=== PATIENT | male | born 1965 | race African-American/Black ===

== ENCOUNTER 2016-06-03 23:38 | Emergency (ER) | payer OTHER, SELFPAY ==
[2016-06-04] MEDS ORDERED: Sodium Chloride 0.9% 100 ML ONE (00:01)
[2016-06-04 00:31] LABS: #Basophils 0.1 thou/uL (0.0-0.2); #Eosinphils 0.4 thou/uL (0.0-0.7); #Monocytes 0.7 thou/uL (0.11-0.59); #Neutrophils 4.4 thou/uL (1.40-6.50); %Basophils 1.2 % (0.0-1.0); %Eosinophils 3.9 % (0.0-10.0); %Lymphocytes 41.4 % (21.0-51.0); %Monocytes 7.4 % (0.0-10.0); Hematocrit 46.5 % (42.0-52.0); Mean Platelet Volume 8.2 fL (7.4-10.4); Red Blood Cell (RBC) Count 5.81 mill/uL (4.70-6.10); White Blood Cell (WBC) Count 9.6 thou/uL (4.8-10.8)
[2016-06-04 00:40] LABS: Troponin I 0.014 ng/mL (< 0.028)
[2016-06-04 00:42] LABS: ALT (SGPT) 27 U/L (0-55); AST (SGOT) 21 U/L (5-34); Alkaline Phosphatase 101 U/L (40-150); Anion Gap 16 mmol/L (10-20); BUN (Urea Nitrogen) 14 mg/dL (8.4-25.7); Bilirubin, Total 0.3 mg/dL (0.2-1.2); Calc. Creatinine Clearance 0 mL/min (70-130); Calcium 9.5 mg/dL (7.8-10.44); Carbon Dioxide 22 mmol/L (22-29); Chloride 106 mmol/L (98-107); Estimated GFR-MDRD 85; Globulin 3.1 g/dL (2.4-3.5); Protein, Total 7.3 g/dL (6.0-8.3)
== END 2016-06-04 02:53 | disposition short-term general hospital (02) ==
LOC: NAV ERS 23:38
DX: I48.91 Unspecified atrial fibrillation (principal); I10 Essential (primary) hypertension; Z87.891 Personal history of nicotine dependence; Z79.82 Long term (current) use of aspirin; Z79.899 Other long term (current) drug therapy
CPT/HCPCS: 80053; 82550; 82553; 83880; 84484; 85025; 93005; 96365; 96366; 96376

== ENCOUNTER 2016-06-19 09:38 | Emergency (ER) | payer SELFPAY | END 2016-06-19 10:07 | disposition home or self-care (01) | LOC: NAV ERS 09:38 | DX: A09 Infectious gastroenteritis and colitis, unspecified (principal); I48.91 Unspecified atrial fibrillation; Z87.891 Personal history of nicotine dependence | CPT/HCPCS: 99283 ==

== ENCOUNTER 2016-11-16 10:08 | Emergency (ER) | payer OTHER, SELFPAY ==
[2016-11-16] MEDS ORDERED: predniSONE 20 MG TAB ONE (10:30)
== END 2016-11-16 10:42 | disposition home or self-care (01) ==
LOC: NAV ERS 10:08
DX: L23.7 Allergic contact dermatitis due to plants, except food (principal); I48.91 Unspecified atrial fibrillation; I10 Essential (primary) hypertension; Z87.891 Personal history of nicotine dependence; Z79.899 Other long term (current) drug therapy
CPT/HCPCS: 99282; J7506

== ENCOUNTER 2016-11-20 21:48 | Emergency (ER) | payer SELFPAY ==
[2016-11-20 22:15] LABS: #Basophils 0.1 thou/uL (0.0-0.2); #Eosinphils 0.3 thou/uL (0.0-0.7); #Lymphocytes 3.6 thou/uL (1.20-3.40); #Monocytes 0.5 thou/uL (0.11-0.59); #Neutrophils 4.9 thou/uL (1.40-6.50); %Basophils 1.2 % (0.0-1.0); %Eosinophils 2.9 % (0.0-10.0); %Lymphocytes 38.4 % (21.0-51.0); %Monocytes 5.6 % (0.0-10.0); %Neutrophils 51.9 % (42.0-75.0); Hemoglobin 14.1 g/dL (14.0-18.0); Mean Corpuscular HGB CONC 31.8 g/dL (32.0-36.0); Mean Corpuscular Hemoglobin 25.4 pg (27.0-31.0); Mean Corpuscular Volume 79.8 fl (80.0-94.0); Platelet Count 259 thou/uL (130-400); RBC Distribution Width 12.7 % (11.5-14.5); Red Blood Cell (RBC) Count 5.55 mill/uL (4.70-6.10); White Blood Cell (WBC) Count 9.4 thou/uL (4.8-10.8)
[2016-11-20 22:28] LABS: Bilirubin Negative (Negative); Blood, Urine Trace (Negative); Clarity Clear (Clear); Glucose, Urine (Dipstick) Negative (Negative); Leukocyte Negative (Negative); Nitrite Negative (Negative); Protein, Urine (Dipstick) Negative (Neg-Trace); Specific Gravity, Urine 1.015 (1.005-1.030); Urobilinogen 0.2 mg/dL (0.2-1.0)
[2016-11-20] MEDS ORDERED: Metoprolol Tartrate 5 MG/5 ML VIAL ONE (22:35)
[2016-11-20 22:36] LABS: ALT (SGPT) 42 U/L (8-55); AST (SGOT) 34 U/L (5-34); Albumin 4.3 g/dL (3.5-5.0); Alkaline Phosphatase 91 U/L (40-150); Anion Gap 15 mmol/L (10-20); BUN (Urea Nitrogen) 19 mg/dL (8.4-25.7); Bilirubin, Total 0.3 mg/dL (0.2-1.2); CK (CPK) 249 U/L (30-200); Calc. Creatinine Clearance 0 mL/min (70-130); Calcium 9.7 mg/dL (7.8-10.44); Carbon Dioxide 22 mmol/L (22-29); Chloride 110 mmol/L (98-107); Estimated GFR-MDRD 86; Globulin 3.2 g/dL (2.4-3.5); Glucose 186 mg/dL (70-105); Potassium 3.8 mmol/L (3.5-5.1); Protein, Total 7.5 g/dL (6.0-8.3); Sodium 143 mmol/L (136-145)
[2016-11-20 22:37] LABS: CKMB 3.1 ng/mL (0-6.6); Troponin I 0.021 ng/mL (< 0.028)
[2016-11-20 22:39] LABS: Bacteria/HPF None Seen HPF (None Seen); RBC/HPF 0-3 HPF (0-3); Squamous Epithelial None Seen HPF (0-3); WBC/HPF None Seen HPF (0-3)
[2016-11-20 22:39] LABS: Amphetamine Not Detected (NotDetected); Barbiturates Screen Not Detected (NotDetected); Benzodiazepine Screen Not Detected (NotDetected); Cocaine Metabolite Screen Not Detected (NotDetected); Medtox Control Line Valid? VALID (VALID); Methadone Not Detected (NotDetected); Methamphetamine Not Detected (NotDetected); Opiate Screen Not Detected (NotDetected); Oxycodone Screen Not Detected (NotDetected); Phencyclidine (PCP) Not Detected (NotDetected); THC/Cannabinoid Screen Not Detected (NotDetected); Tricyclic Screen Not Detected (NotDetected)
[2016-11-20 23:09] LABS: PTT 33.7 SEC (22.9-36.1); Prothrombin Time 12.9 SEC (12.0-14.7)
--- NOTE | 2016-11-20 23:22 | RAD ---
CHEST ONE VIEW: History: Heart racing approximately 30 minutes ago. Comparison: 06-04-16 FINDINGS: Heart size is upper limits of normal. Mild pulmonary venous congestion. No pneumothorax or effusion. IMPRESSION: Mild cardiomegaly and pulmonary venous congestion. POS: [facility]
== END 2016-11-20 23:40 | disposition home or self-care (01) ==
LOC: NAV ERS 21:48
DX: I48.91 Unspecified atrial fibrillation (principal); I10 Essential (primary) hypertension; Z79.82 Long term (current) use of aspirin; Z79.899 Other long term (current) drug therapy; Z87.891 Personal history of nicotine dependence
CPT/HCPCS: 36415; 71010; 80053; 80306; 81003; 81015; 82550; 82553; 84484; 85025; 85610; 85730; 93005; 94760; 96374

== ENCOUNTER 2017-01-11 23:41 | Emergency (ER) | payer SELFPAY ==
[2017-01-11] MEDS ORDERED: Sodium Chloride 0.9% 0 ML ONE (23:56)
[2017-01-11] MEDS ORDERED: Sodium Chloride 0.9% 100 ML ONE (23:57)
[2017-01-11] MEDS ORDERED: Sodium Chloride 0.9% 500 ML ONE (23:59)
[2017-01-12 00:07] LABS: #Basophils 0.1 thou/uL (0.0-0.2); #Eosinphils 0.3 thou/uL (0.0-0.7); #Lymphocytes 3.7 thou/uL (1.20-3.40); #Monocytes 0.8 thou/uL (0.11-0.59); #Neutrophils 3.6 thou/uL (1.40-6.50); %Basophils 0.8 % (0.0-1.0); %Eosinophils 3.1 % (0.0-10.0); %Lymphocytes 43.9 % (21.0-51.0); %Monocytes 9.8 % (0.0-10.0); %Neutrophils 42.5 % (42.0-75.0); Hemoglobin 13.6 g/dL (14.0-18.0); Mean Corpuscular HGB CONC 32.8 g/dL (32.0-36.0); Mean Corpuscular Hemoglobin 25.9 pg (27.0-31.0); Mean Corpuscular Volume 78.9 fl (80.0-94.0); Mean Platelet Volume 7.9 fL (7.4-10.4); Platelet Count 244 thou/uL (130-400); RBC Distribution Width 12.5 % (11.5-14.5); Red Blood Cell (RBC) Count 5.26 mill/uL (4.70-6.10); White Blood Cell (WBC) Count 8.5 thou/uL (4.8-10.8)
[2017-01-12 00:19] LABS: ALT (SGPT) 39 U/L (8-55); AST (SGOT) 21 U/L (5-34); Alkaline Phosphatase 94 U/L (40-150); Anion Gap 12 mmol/L (10-20); BUN (Urea Nitrogen) 12 mg/dL (8.4-25.7); Bilirubin, Total 0.3 mg/dL (0.2-1.2); CK (CPK) 251 U/L (30-200); Calc. Creatinine Clearance 0 mL/min (70-130); Calcium 9.5 mg/dL (7.8-10.44); Carbon Dioxide 24 mmol/L (22-29); Chloride 111 mmol/L (98-107); Estimated GFR-MDRD Greater than 90; Globulin 2.8 g/dL (2.4-3.5); Glucose 177 mg/dL (70-105); Potassium 4.2 mmol/L (3.5-5.1); Protein, Total 6.8 g/dL (6.0-8.3); Sodium 143 mmol/L (136-145)
[2017-01-12 00:22] LABS: CKMB 3.2 ng/mL (0-6.6); Troponin I 0.029 ng/mL (< 0.028)
--- NOTE | 2017-01-12 07:55 | RAD ---
AP VIEW CHEST: HISTORY: Atrial fibrillation. Cardiac palpitations. FINDINGS: AP view chest was obtained on 01/11/17. Comparison is made to previous exam from 11/20/16. AP view chest demonstrates the lungs to be well aerated. No evidence of active intrathoracic diseas e is seen. No evidence of effusions, pneumonia, or pneumothorax is seen. IMPRESSION: Unremarkable AP view chest. POS: [facility]
== END 2017-01-12 00:45 | disposition home or self-care (01) ==
LOC: NAV ERS 23:41
DX: I48.91 Unspecified atrial fibrillation (principal); I10 Essential (primary) hypertension; Z87.891 Personal history of nicotine dependence; Z79.82 Long term (current) use of aspirin; Z79.899 Other long term (current) drug therapy
CPT/HCPCS: 71010; 80053; 82553; 83880; 84484; 85025; 93005; 96365; 96376; J7050

== ENCOUNTER 2017-03-16 07:20 | Emergency (ER) | payer SELFPAY ==
[2017-03-16] MEDS ORDERED: Metoprolol Tartrate 5 MG/5 ML VIAL ONE ×2 (07:49→08:33)
[2017-03-16 07:56] LABS: #Basophils 0.1 thou/uL (0.0-0.2); #Eosinphils 0.3 thou/uL (0.0-0.7); #Lymphocytes 2.5 thou/uL (1.20-3.40); #Monocytes 0.6 thou/uL (0.11-0.59); #Neutrophils 5.8 thou/uL (1.40-6.50); %Basophils 1.2 % (0.0-1.0); %Eosinophils 2.9 % (0.0-10.0); %Lymphocytes 26.6 % (21.0-51.0); %Monocytes 6.6 % (0.0-10.0); %Neutrophils 62.7 % (42.0-75.0); Hemoglobin 15.6 g/dL (14.0-18.0); Mean Corpuscular HGB CONC 31.2 g/dL (32.0-36.0); Mean Corpuscular Volume 83.2 fl (80.0-94.0); Mean Platelet Volume 8.3 fL (7.4-10.4); Platelet Count 260 thou/uL (130-400); RBC Distribution Width 12.4 % (11.5-14.5); Red Blood Cell (RBC) Count 5.99 mill/uL (4.70-6.10); White Blood Cell (WBC) Count 9.3 thou/uL (4.8-10.8)
[2017-03-16 08:11] LABS: CKMB 3.3 ng/mL (0-6.6); Troponin I 0.039 ng/mL (< 0.028)
[2017-03-16 08:17] LABS: ALT (SGPT) 24 U/L (8-55); AST (SGOT) 19 U/L (5-34); Albumin 4.2 g/dL (3.5-5.0); Alkaline Phosphatase 128 U/L (40-150); Anion Gap 15 mmol/L (10-20); BUN (Urea Nitrogen) 12 mg/dL (8.4-25.7); Bilirubin, Total 0.2 mg/dL (0.2-1.2); Calc. Creatinine Clearance 0 mL/min (70-130); Calcium 9.3 mg/dL (7.8-10.44); Carbon Dioxide 21 mmol/L (22-29); Chloride 108 mmol/L (98-107); Estimated GFR-MDRD Greater than 90; Globulin 3.1 g/dL (2.4-3.5); Glucose 150 mg/dL (70-105); Magnesium 2.7 mg/dL (1.6-2.6); Potassium 3.6 mmol/L (3.5-5.1); Protein, Total 7.3 g/dL (6.0-8.3); Sodium 140 mmol/L (136-145)
[2017-03-16] MEDS ORDERED: Sodium Chloride 0.9% 1,000 ML ONE (08:32)
--- NOTE | 2017-03-16 09:50 | RAD ---
PORTABLE SEMIUPRIGHT FRONTAL CHEST RADIOGRAPH Date: 03-16-17 Comparison: 01-11-17 History: Tachycardia. FINDINGS: Heart and mediastinal contours are stable. The thoracic aorta is mildly prominent and tortuous. There is no pneumothorax, pleural fluid, focal consolidation or alveolar edema. IMPRESSION: No interval change - no acute findings. POS: [facility]
[2017-03-16] MEDS ORDERED: Metoprolol Tartrate 50 MG TAB ONE (11:14)
[2017-03-16 11:25] LABS: Troponin I 0.084 ng/mL (< 0.028)
== END 2017-03-16 12:37 | disposition short-term general hospital (02) ==
LOC: NAV ERS 07:20
DX: R00.2 Palpitations (principal); I10 Essential (primary) hypertension; R79.89 Other specified abnormal findings of blood chemistry; I48.91 Unspecified atrial fibrillation; Z87.891 Personal history of nicotine dependence; Z79.82 Long term (current) use of aspirin; Z79.899 Other long term (current) drug therapy
CPT/HCPCS: 71010; 80053; 82553; 83735; 84443; 84484; 85025; 93005; 96361; 96374; 96376; J7050

== ENCOUNTER 2017-04-16 22:35 | Emergency (ER) | payer SELFPAY ==
[2017-04-16 22:55] LABS: #Basophils 0.1 thou/uL (0.0-0.2); #Eosinphils 0.3 thou/uL (0.0-0.7); #Lymphocytes 3.6 thou/uL (1.20-3.40); #Monocytes 0.7 thou/uL (0.11-0.59); #Neutrophils 4.7 thou/uL (1.40-6.50); %Basophils 1.2 % (0.0-1.0); %Eosinophils 3.1 % (0.0-10.0); %Lymphocytes 38.4 % (21.0-51.0); %Monocytes 7.6 % (0.0-10.0); %Neutrophils 49.8 % (42.0-75.0); Hemoglobin 13.7 g/dL (14.0-18.0); Mean Corpuscular HGB CONC 32.2 g/dL (32.0-36.0); Mean Corpuscular Hemoglobin 25.3 pg (27.0-31.0); Mean Corpuscular Volume 78.5 fl (80.0-94.0); Platelet Count 217 thou/uL (130-400); RBC Distribution Width 12.5 % (11.5-14.5); Red Blood Cell (RBC) Count 5.41 mill/uL (4.70-6.10); White Blood Cell (WBC) Count 9.4 thou/uL (4.8-10.8)
--- NOTE | 2017-04-16 23:07 | RAD ---
SEMI UPRIGHT PORTABLE CHEST ONE VIEW: History: 51-year-old male with chest pain. Comparison: 04-10-17 FINDINGS: Monitor leads overlie the chest. Heart size is within normal limits. The lungs are clear. IMPRESSION: No acute intrathoracic disease. No evidence for pneumonia or other acute process. POS: [facility]
[2017-04-16] MEDS ORDERED: Metoprolol Tartrate 5 MG/5 ML VIAL ONE (23:11)
[2017-04-16 23:16] LABS: CKMB 2.5 ng/mL (0-6.6); Troponin I 0.023 ng/mL (< 0.028)
[2017-04-16 23:19] LABS: ALT (SGPT) 20 U/L (8-55); AST (SGOT) 16 U/L (5-34); Albumin 4.2 g/dL (3.5-5.0); Alkaline Phosphatase 121 U/L (40-150); Anion Gap 15 mmol/L (10-20); BUN (Urea Nitrogen) 12 mg/dL (8.4-25.7); Bilirubin, Total 0.4 mg/dL (0.2-1.2); CK (CPK) 278 U/L (30-200); Calc. Creatinine Clearance 0 mL/min (70-130); Calcium 9.4 mg/dL (7.8-10.44); Carbon Dioxide 24 mmol/L (22-29); Chloride 107 mmol/L (98-107); Estimated GFR-MDRD Greater than 90; Globulin 3.1 g/dL (2.4-3.5); Glucose 118 mg/dL (70-105); Lipase 36 U/L (8-78); Potassium 3.5 mmol/L (3.5-5.1); Protein, Total 7.3 g/dL (6.0-8.3); Sodium 142 mmol/L (136-145)
== END 2017-04-17 00:26 | disposition home or self-care (01) ==
LOC: NAV ERS 22:35
DX: I48.91 Unspecified atrial fibrillation (principal); E78.1 Pure hyperglyceridemia; I10 Essential (primary) hypertension; Z87.891 Personal history of nicotine dependence; Z79.82 Long term (current) use of aspirin; Z79.899 Other long term (current) drug therapy
CPT/HCPCS: 36415; 71010; 80053; 82553; 83690; 84484; 85025; 93005; 96374

== ENCOUNTER 2017-04-25 00:01 | Emergency (ER) | payer BC, SELFPAY ==
[2017-04-25 00:40] LABS: #Basophils 0.1 thou/uL (0.0-0.2); #Eosinphils 0.3 thou/uL (0.0-0.7); #Lymphocytes 3.6 thou/uL (1.20-3.40); #Monocytes 0.7 thou/uL (0.11-0.59); #Neutrophils 3.9 thou/uL (1.40-6.50); %Basophils 1.4 % (0.0-1.0); %Eosinophils 3.4 % (0.0-10.0); %Lymphocytes 41.9 % (21.0-51.0); %Monocytes 7.6 % (0.0-10.0); %Neutrophils 45.7 % (42.0-75.0); Mean Corpuscular HGB CONC 32.5 g/dL (32.0-36.0); Mean Corpuscular Hemoglobin 25.4 pg (27.0-31.0); Mean Corpuscular Volume 78.2 fl (80.0-94.0); Mean Platelet Volume 10.5 fL (7.4-10.4); Platelet Count 223 thou/uL (130-400); RBC Distribution Width 12.4 % (11.5-14.5); White Blood Cell (WBC) Count 8.6 thou/uL (4.8-10.8)
[2017-04-25 00:43] LABS: Bilirubin Negative (Negative); Blood, Urine Trace (Negative); Clarity Clear (Clear); Glucose, Urine (Dipstick) Negative (Negative); Leukocyte Negative (Negative); Nitrite Negative (Negative); Protein, Urine (Dipstick) > or equal to 300 mg/dL (Neg-Trace); Specific Gravity, Urine 1.025 (1.005-1.030); Urobilinogen 0.2 mg/dL (0.2-1.0)
[2017-04-25 00:46] LABS: Anion Gap 15 mmol/L (10-20); BUN (Urea Nitrogen) 10 mg/dL (8.4-25.7); Bacteria/HPF None Seen HPF (None Seen); Calc. Creatinine Clearance 0 mL/min (70-130); Calcium 9.7 mg/dL (7.8-10.44); Carbon Dioxide 24 mmol/L (22-29); Chloride 108 mmol/L (98-107); Estimated GFR-MDRD Greater than 90; Glucose 119 mg/dL (70-105); Potassium 3.5 mmol/L (3.5-5.1); RBC/HPF 0-3 HPF (0-3); Sodium 143 mmol/L (136-145); Squamous Epithelial 0-3 HPF (0-3); WBC/HPF None Seen HPF (0-3)
[2017-04-25 00:50] LABS: INR-International Normal Ratio 0.9; PTT 34.6 SEC (22.9-36.1); Prothrombin Time 12.5 SEC (12.0-14.7)
[2017-04-25 00:52] LABS: CKMB 2.9 ng/mL (0-6.6); Troponin I 0.029 ng/mL (< 0.028)
[2017-04-25] MEDS ORDERED: Diltiazem 125 MG/25 ML ONE (01:08)
[2017-04-25] MEDS ORDERED: Sodium Chloride 0.9% 100 ML ONE (01:25)
[2017-04-25 06:37] LABS: Troponin I 0.317 ng/mL (< 0.028)
[2017-04-25] MEDS ORDERED: Enoxaparin Sodium 100 MG/ML SYRINGE ONE (06:50)
--- NOTE | 2017-04-25 07:50 | RAD ---
CHEST ONE VIEW: HISTORY: Chest pain. COMPARISON: Chest, one view, 04/16/2017. FINDINGS: There is low grade pulmonary venous congestion. The remainder of the lungs is clear. No pneumothora x or effusion. IMPRESSION: Mild pulmonary vascular congestion. POS: [facility]
== END 2017-04-25 07:00 | disposition short-term general hospital (02) ==
LOC: NAV ERS 00:01
DX: I48.91 Unspecified atrial fibrillation (principal); E78.5 Hyperlipidemia, unspecified; E78.2 Mixed hyperlipidemia; I10 Essential (primary) hypertension; Z87.891 Personal history of nicotine dependence; Z79.899 Other long term (current) drug therapy; Z79.82 Long term (current) use of aspirin
CPT/HCPCS: 71045; 80048; 81003; 81015; 82553; 83605; 84484; 85025; 85610; 85730; 93005; 96361; 96365; 96366; 96372; 96376; J1650; J7050

== ENCOUNTER 2017-05-31 21:01 | Emergency (ER) | payer BC ==
[2017-05-31] MEDS ORDERED: Diltiazem 125 MG/25 ML ONE (21:19)
[2017-05-31] MEDS ORDERED: Sodium Chloride 0.9% 100 ML ONE (21:19)
[2017-05-31 21:45] LABS: #Basophils 0.2 thou/uL (0.0-0.2); #Eosinphils 0.3 thou/uL (0.0-0.7); #Lymphocytes 3.7 thou/uL (1.20-3.40); #Monocytes 0.8 thou/uL (0.11-0.59); #Neutrophils 5.1 thou/uL (1.40-6.50); %Basophils 1.6 % (0.0-1.0); %Eosinophils 2.8 % (0.0-10.0); %Lymphocytes 36.8 % (21.0-51.0); %Monocytes 7.9 % (0.0-10.0); %Neutrophils 50.9 % (42.0-75.0); Hemoglobin 14.7 g/dL (14.0-18.0); Mean Corpuscular HGB CONC 31.6 g/dL (32.0-36.0); Mean Corpuscular Hemoglobin 24.6 pg (27.0-31.0); Mean Corpuscular Volume 77.7 fl (80.0-94.0); Mean Platelet Volume 9.1 fL (7.4-10.4); Platelet Count 255 thou/uL (130-400); RBC Distribution Width 12.5 % (11.5-14.5); Red Blood Cell (RBC) Count 5.97 mill/uL (4.70-6.10); White Blood Cell (WBC) Count 10.1 thou/uL (4.8-10.8)
[2017-05-31 21:48] LABS: ALT (SGPT) 20 U/L (8-55); AST (SGOT) 15 U/L (5-34); Albumin 4.5 g/dL (3.5-5.0); Alkaline Phosphatase 119 U/L (40-150); Anion Gap 14 mmol/L (10-20); BUN (Urea Nitrogen) 13 mg/dL (8.4-25.7); Bilirubin, Total 0.5 mg/dL (0.2-1.2); CK (CPK) 319 U/L (30-200); Calc. Creatinine Clearance 0 mL/min (70-130); Calcium 9.9 mg/dL (7.8-10.44); Carbon Dioxide 23 mmol/L (22-29); Chloride 109 mmol/L (98-107); Estimated GFR-MDRD Greater than 90; Globulin 3.2 g/dL (2.4-3.5); Glucose 119 mg/dL (70-105); Potassium 3.3 mmol/L (3.5-5.1); Protein, Total 7.7 g/dL (6.0-8.3); Sodium 143 mmol/L (136-145)
[2017-05-31 21:49] LABS: CKMB 2.8 ng/mL (0-6.6); Troponin I 0.018 ng/mL (< 0.028)
--- NOTE | 2017-05-31 21:59 | RAD ---
PORTABLE CHEST: 05/31/17 HISTORY: Tachycardia. Lungs are clear. No infiltrate or vascular congestion. Heart and mediastinum unremarkable. IMPRESSION: No acute abnormality. POS: [facility]
[2017-05-31 22:09] LABS: PLT Morphology Comment Appears Adequate; RBC Morphology Normal
== END 2017-05-31 22:40 | disposition home or self-care (01) ==
LOC: NAV ERS 21:01
DX: I48.91 Unspecified atrial fibrillation (principal); E78.5 Hyperlipidemia, unspecified; E78.2 Mixed hyperlipidemia; Z87.891 Personal history of nicotine dependence; Z79.899 Other long term (current) drug therapy; Z79.82 Long term (current) use of aspirin
CPT/HCPCS: 71045; 80053; 82553; 83880; 84484; 85025; 93005; 96365; 96376; J7050

== ENCOUNTER 2017-07-16 00:03 | Emergency (ER) | payer BC ==
[2017-07-16 00:39] LABS: #Basophils 0.1 thou/uL (0.0-0.2); #Eosinphils 0.3 thou/uL (0.0-0.7); #Lymphocytes 3.5 thou/uL (1.20-3.40); #Monocytes 0.7 thou/uL (0.11-0.59); #Neutrophils 4.8 thou/uL (1.40-6.50); %Basophils 1.1 % (0.0-1.0); %Eosinophils 3.1 % (0.0-10.0); %Lymphocytes 37.5 % (21.0-51.0); %Monocytes 6.9 % (0.0-10.0); %Neutrophils 51.4 % (42.0-75.0); Hemoglobin 13.9 g/dL (14.0-18.0); MDiff Complete? YES; Mean Corpuscular HGB CONC 31.9 g/dL (32.0-36.0); Mean Corpuscular Volume 78.1 fl (80.0-94.0); Microcytosis SLIGHT = 6-15 cells (100X) (0-5/hpf); PLT Morphology Comment Appears Adequate; Platelet Count 238 thou/uL (130-400); RBC Distribution Width 12.3 % (11.5-14.5); Red Blood Cell (RBC) Count 5.57 mill/uL (4.70-6.10); White Blood Cell (WBC) Count 9.4 thou/uL (4.8-10.8)
[2017-07-16 00:45] LABS: ALT (SGPT) 21 U/L (8-55); AST (SGOT) 15 U/L (5-34); Albumin 4.1 g/dL (3.5-5.0); Alkaline Phosphatase 113 U/L (40-150); Anion Gap 13 mmol/L (10-20); BUN (Urea Nitrogen) 14 mg/dL (8.4-25.7); Bilirubin, Total 0.4 mg/dL (0.2-1.2); Calc. Creatinine Clearance 0 mL/min (70-130); Calcium 9.6 mg/dL (7.8-10.44); Carbon Dioxide 23 mmol/L (22-29); Chloride 108 mmol/L (98-107); Estimated GFR-MDRD 88; Globulin 2.9 g/dL (2.4-3.5); Glucose 157 mg/dL (70-105); Potassium 3.2 mmol/L (3.5-5.1); Sodium 141 mmol/L (136-145)
[2017-07-16 00:48] LABS: CKMB 2.2 ng/mL (0-6.6); Troponin I Less than 0.010 ng/mL (< 0.028)
[2017-07-16 00:55] LABS: Bilirubin Negative (Negative); Blood, Urine Trace (Negative); Clarity Clear (Clear); Glucose, Urine (Dipstick) Negative (Negative); Leukocyte Negative (Negative); Nitrite Negative (Negative); Protein, Urine (Dipstick) Trace mg/dL (Neg-Trace); Urobilinogen 0.2 mg/dL (0.2-1.0); pH, Urine 6.5 (5.0-9.0)
[2017-07-16 01:02] LABS: Bacteria/HPF None Seen HPF (None Seen); RBC/HPF 0-3 HPF (0-3); Squamous Epithelial None Seen HPF (0-3); WBC/HPF None Seen HPF (0-3)
[2017-07-16 01:04] LABS: Amphetamine Not Detected (NotDetected); Barbiturates Screen Not Detected (NotDetected); Benzodiazepine Screen Not Detected (NotDetected); Cocaine Metabolite Screen Not Detected (NotDetected); Medtox Control Line Valid? VALID (VALID); Methadone Not Detected (NotDetected); Methamphetamine Not Detected (NotDetected); Opiate Screen Not Detected (NotDetected); Oxycodone Screen Not Detected (NotDetected); Phencyclidine (PCP) Not Detected (NotDetected); THC/Cannabinoid Screen Not Detected (NotDetected); Tricyclic Screen Not Detected (NotDetected)
--- NOTE | 2017-07-16 08:00 | RAD ---
CHEST ONE VIEW: HISTORY: Chest pain. COMPARISON: Chest, one view, 05/31/2017. FINDINGS: The lungs are clear. No pneumothorax or effusion. The cardiac silhouette and mediastinal contours a re within normal limits. No acute osseous abnormality. IMPRESSION: No acute intrathoracic abnormality. POS: [facility]
== END 2017-07-16 01:28 | disposition home or self-care (01) ==
LOC: NAV ERS 00:03
DX: R07.2 Precordial pain (principal); I48.91 Unspecified atrial fibrillation; I10 Essential (primary) hypertension; E78.2 Mixed hyperlipidemia; Z87.891 Personal history of nicotine dependence; Z79.02 Long term (current) use of antithrombotics/antiplatelets; Z79.899 Other long term (current) drug therapy
CPT/HCPCS: 71045; 80053; 80306; 81003; 81015; 82553; 84484; 85025; 93005

== ENCOUNTER 2017-07-27 22:56 | Emergency (ER) | payer BC ==
[2017-07-27] MEDS ORDERED: Diltiazem 125 MG/25 ML ONE (23:07)
[2017-07-27] MEDS ORDERED: Sodium Chloride 0.9% 100 ML ONE (23:08)
[2017-07-27 23:18] LABS: #Basophils 0.1 thou/uL (0.0-0.2); #Eosinphils 0.3 thou/uL (0.0-0.7); #Monocytes 0.7 thou/uL (0.11-0.59); #Neutrophils 5.3 thou/uL (1.40-6.50); %Basophils 1.3 % (0.0-1.0); %Eosinophils 2.7 % (0.0-10.0); %Lymphocytes 38.4 % (21.0-51.0); %Monocytes 6.9 % (0.0-10.0); %Neutrophils 50.7 % (42.0-75.0); Mean Corpuscular HGB CONC 32.6 g/dL (32.0-36.0); Mean Corpuscular Hemoglobin 25.4 pg (27.0-31.0); Mean Corpuscular Volume 77.8 fl (80.0-94.0); Mean Platelet Volume 8.6 fL (7.4-10.4); Platelet Count 282 thou/uL (130-400); RBC Distribution Width 12.3 % (11.5-14.5); White Blood Cell (WBC) Count 10.4 thou/uL (4.8-10.8)
[2017-07-27 23:25] LABS: PTT 37.7 SEC (22.9-36.1)
[2017-07-27 23:26] LABS: D-Dimer Test 0.36 *mcg/mL (0.27-0.43); INR-International Normal Ratio 0.9; Prothrombin Time 12.7 SEC (12.0-14.7)
[2017-07-27 23:28] LABS: Alkaline Phosphatase 125 U/L (40-150)
[2017-07-27 23:30] LABS: ALT (SGPT) 19 U/L (8-55); AST (SGOT) 17 U/L (5-34); Albumin 4.5 g/dL (3.5-5.0); Anion Gap 15 mmol/L (10-20); BUN (Urea Nitrogen) 10 mg/dL (8.4-25.7); Bilirubin, Total 0.4 mg/dL (0.2-1.2); Calc. Creatinine Clearance 0 mL/min (70-130); Calcium 10.2 mg/dL (7.8-10.44); Carbon Dioxide 25 mmol/L (22-29); Chloride 106 mmol/L (98-107); Estimated GFR-MDRD Greater than 90; Globulin 3.3 g/dL (2.4-3.5); Glucose 112 mg/dL (70-105); Lipase 32 U/L (8-78); Potassium 3.7 mmol/L (3.5-5.1); Protein, Total 7.8 g/dL (6.0-8.3); Sodium 142 mmol/L (136-145)
[2017-07-27 23:31] LABS: CKMB 2.9 ng/mL (0-6.6); Troponin I Less than 0.010 ng/mL (< 0.028)
--- NOTE | 2017-07-27 23:33 | RAD ---
PORTABLE AP CHEST X-RAY 07/27/17 HISTORY: Chest pain. COMPARISON: 07/16/17. FINDINGS: The cardiac silhouette is magnified by projection but stable in size. Pulmonary vasculature is within normal limits. The lungs remain clear. There is patchy sclerotic density seen in the right humeral h ead. This is overall nonspecific and could be related to either area of osteonecrosis. This is stable when compared to the prior exam as well as study on 04/10/17. IMPRESSION: No acute cardiopulmonary process. POS: [facility]
== END 2017-07-28 02:11 | disposition short-term general hospital (02) ==
LOC: NAV ERS 22:56
DX: I48.91 Unspecified atrial fibrillation (principal); E78.2 Mixed hyperlipidemia; I10 Essential (primary) hypertension; Z87.891 Personal history of nicotine dependence; Z79.899 Other long term (current) drug therapy; Z79.02 Long term (current) use of antithrombotics/antiplatelets
CPT/HCPCS: 71045; 80053; 82553; 83690; 83880; 84484; 85025; 85379; 85610; 85730; 93005; 96365; 96366; 96376

== ENCOUNTER 2017-10-08 00:41 | Emergency (ER) | payer BC ==
[2017-10-08 01:34] LABS: #Basophils 0.1 thou/uL (0.0-0.2); #Eosinphils 0.3 thou/uL (0.0-0.7); #Lymphocytes 3.1 thou/uL (1.20-3.40); #Monocytes 0.7 thou/uL (0.11-0.59); #Neutrophils 5.2 thou/uL (1.40-6.50); %Basophils 0.9 % (0.0-1.0); %Eosinophils 3.3 % (0.0-10.0); %Lymphocytes 32.9 % (21.0-51.0); %Monocytes 7.2 % (0.0-10.0); %Neutrophils 55.8 % (42.0-75.0); Hemoglobin 13.5 g/dL (14.0-18.0); Hypochromia SLIGHT = 6-15 cells (100X) (0-5/hpf); MDiff Complete? YES; Mean Corpuscular HGB CONC 31.1 g/dL (32.0-36.0); Mean Corpuscular Hemoglobin 24.5 pg (27.0-31.0); Mean Corpuscular Volume 78.6 fl (80.0-94.0); Mean Platelet Volume 8.8 fL (7.4-10.4); Microcytosis MODERATE=15-30 cells (100X) (0-5/hpf); PLT Morphology Comment Appears Adequate; Platelet Count 236 thou/uL (130-400); RBC Distribution Width 12.9 % (11.5-14.5); Red Blood Cell (RBC) Count 5.51 mill/uL (4.70-6.10); White Blood Cell (WBC) Count 9.3 thou/uL (4.8-10.8)
[2017-10-08 01:36] LABS: Chloride 110 mmol/L (98-107); Potassium 3.9 mmol/L (3.5-5.1); Sodium 142 mmol/L (136-145); Troponin I 0.024 ng/mL (< 0.028)
[2017-10-08 01:37] LABS: Anion Gap 14 mmol/L (10-20); Carbon Dioxide 22 mmol/L (22-29)
[2017-10-08 01:40] LABS: BUN (Urea Nitrogen) 11 mg/dL (8.4-25.7); Calc. Creatinine Clearance 0 mL/min (70-130); Estimated GFR-MDRD Greater than 90
[2017-10-08 01:41] LABS: ALT (SGPT) 35 U/L (8-55); AST (SGOT) 20 U/L (5-34); Albumin 4.4 g/dL (3.5-5.0); Alkaline Phosphatase 151 U/L (40-150); Bilirubin, Total 0.2 mg/dL (0.2-1.2); Calcium 9.5 mg/dL (7.8-10.44); Globulin 2.2 g/dL (2.4-3.5); Glucose 204 mg/dL (70-105); Protein, Total 6.6 g/dL (6.0-8.3)
[2017-10-08] MEDS ORDERED: Diltiazem 125 MG/25 ML ONE (02:10)
[2017-10-08 02:54] LABS: PTT 37.7 SEC (22.9-36.1); Prothrombin Time 13.1 SEC (12.0-14.7)
== END 2017-10-08 02:45 | disposition short-term general hospital (02) ==
LOC: NAV ERS 00:41
DX: I49.01 Ventricular fibrillation (principal); E78.2 Mixed hyperlipidemia; I10 Essential (primary) hypertension; Z87.891 Personal history of nicotine dependence; Z79.899 Other long term (current) drug therapy
CPT/HCPCS: 80053; 82553; 84484; 85025; 85610; 85730; 93005; 96365; 96376

== ENCOUNTER 2018-01-31 12:33 | Emergency (ER) | payer BC, SELFPAY ==
[2018-01-31] MEDS ORDERED: cloNIDine 0.1 MG TAB ONE (12:52)
[2018-01-31 13:22] LABS: Anion Gap 14 mmol/L (10-20); BUN (Urea Nitrogen) 7 mg/dL (8.4-25.7); Calc. Creatinine Clearance 0 mL/min (70-130); Calcium 9.6 mg/dL (7.8-10.44); Carbon Dioxide 24 mmol/L (22-29); Chloride 107 mmol/L (98-107); Estimated GFR-MDRD Greater than 90; Glucose 111 mg/dL (70-105); Potassium 3.5 mmol/L (3.5-5.1); Sodium 141 mmol/L (136-145)
== END 2018-01-31 13:45 | disposition home or self-care (01) ==
LOC: NAV ERS 12:33
DX: I10 Essential (primary) hypertension (principal); I49.9 Cardiac arrhythmia, unspecified; I48.91 Unspecified atrial fibrillation; E78.2 Mixed hyperlipidemia; Z87.891 Personal history of nicotine dependence; Z79.899 Other long term (current) drug therapy; Z79.01 Long term (current) use of anticoagulants
CPT/HCPCS: 80048; 99284

== ENCOUNTER 2019-01-09 14:44 | Emergency (ER) | payer BC, SELFPAY ==
[2019-01-09] MEDS ORDERED: Acetaminophen 500 MG TAB ONE (15:23)
--- NOTE | 2019-01-09 15:40 | RAD ---
4 views right knee: 01/09/2019 COMPARISON: None HISTORY: Right knee pain FINDINGS: There is mild medial compartment narrowing. There is mild patellofemoral joint space narrow ing. There is enthesophyte formation involving the origin of the patellar tendon the insertion of the quadriceps tendon. Base small/moderate knee joint effusion is suspected. No acute fracture or dis location. IMPRESSION: Degenerative joint disease with no acute fracture or dislocation. Significant knee joint effusion which could be related to degenerative change. An inflammatory or infectious cause of left knee joint effusion cannot be excluded.
== END 2019-01-09 16:08 | disposition home or self-care (01) ==
LOC: NAV ERS 14:44
DX: M17.11 Unilateral primary osteoarthritis, right knee (principal); M25.461 Effusion, right knee; I49.9 Cardiac arrhythmia, unspecified; I48.91 Unspecified atrial fibrillation; E78.5 Hyperlipidemia, unspecified; E78.2 Mixed hyperlipidemia; I10 Essential (primary) hypertension; Z87.891 Personal history of nicotine dependence; Z79.01 Long term (current) use of anticoagulants; Z79.899 Other long term (current) drug therapy

== ENCOUNTER 2019-04-22 06:39 | Emergency (ER) | payer SELFPAY | END 2019-04-22 07:46 | disposition home or self-care (01) | LOC: NAV ERS 06:39 | DX: S39.012A Strain of muscle, fascia and tendon of lower back, initial encounter (principal); I48.91 Unspecified atrial fibrillation; E78.2 Mixed hyperlipidemia; I10 Essential (primary) hypertension; I25.2 Old myocardial infarction; Z87.891 Personal history of nicotine dependence; Z79.01 Long term (current) use of anticoagulants; Z79.899 Other long term (current) drug therapy; W19.XXXA Unspecified fall, initial encounter | CPT/HCPCS: 99283 ==

== ENCOUNTER 2019-05-07 21:49 | Emergency (ER) | payer SELFPAY ==
[2019-05-07] MEDS ORDERED: Acetaminophen 500 MG TAB ONE (22:29)
[2019-05-07] MEDS ORDERED: Dexamethasone 20 MG/5 ML VIAL ONE (22:29)
--- NOTE | 2019-05-07 22:29 | RAD ---
Lumbar spine 3 views HISTORY: Low back pain. FINDINGS: There are 5 lumbar type vertebrae. Pedicles are intact. Rightward convex curvature on the f rontal view. Vertebral body heights are maintained. Reversal of the normal lordotic curvature. Moderate osteophytosis throughout the vertebral bodies and facets. No acute fracture or dislocation. Calcification over the arterial structures. IMPRESSION: Osseous degenerative changes lumbar spine. No acute osseous abnormalities are demonstrate d. Atherosclerosis.
== END 2019-05-07 22:50 | disposition home or self-care (01) ==
LOC: NAV ERS 21:49
DX: M54.5 Low back pain (principal); I10 Essential (primary) hypertension; I49.9 Cardiac arrhythmia, unspecified; I48.91 Unspecified atrial fibrillation; E78.2 Mixed hyperlipidemia; Z87.891 Personal history of nicotine dependence; Z79.01 Long term (current) use of anticoagulants; Z79.899 Other long term (current) drug therapy
CPT/HCPCS: 72100; 96372; J1100

== ENCOUNTER 2021-09-05 09:39 | Emergency (ER) | payer SELFPAY | END 2021-09-05 10:30 | disposition home or self-care (01) | LOC: NAV ERS 09:39 | DX: J18.9 Pneumonia, unspecified organism (principal); I48.91 Unspecified atrial fibrillation; I10 Essential (primary) hypertension; E78.2 Mixed hyperlipidemia; E66.9 Obesity, unspecified; F17.220 Nicotine dependence, chewing tobacco, uncomplicated; Z79.01 Long term (current) use of anticoagulants; Z79.899 Other long term (current) drug therapy; Z68.45 Body mass index [BMI] 70 or greater, adult | CPT/HCPCS: 71045 ==

== ENCOUNTER 2021-10-04 20:12 | Emergency (ER) | payer SELFPAY ==
[2021-10-04] MEDS ORDERED: Lidocaine 1% 20 ML MDV ONE (20:40)
[2021-10-04] MEDS ORDERED: Sulfameth/Trimethoprim DS 800-160mg TAB ONE (20:56)
== END 2021-10-04 21:03 | disposition home or self-care (01) ==
LOC: NAV ERS 20:12
DX: L02.212 Cutaneous abscess of back [any part, except buttock and flank] (principal); I10 Essential (primary) hypertension; E78.00 Pure hypercholesterolemia, unspecified; I48.91 Unspecified atrial fibrillation; E78.2 Mixed hyperlipidemia; F17.220 Nicotine dependence, chewing tobacco, uncomplicated; E66.9 Obesity, unspecified; Z68.45 Body mass index [BMI] 70 or greater, adult; Z79.01 Long term (current) use of anticoagulants; Z79.899 Other long term (current) drug therapy
CPT/HCPCS: 10060

== ENCOUNTER 2021-11-24 10:53 | Emergency (ER) | payer OTHER, SELFPAY ==
[2021-11-24] MEDS ORDERED: Boostrix 0.5 ML (Tdap) VIAL ONE (11:18)
[2021-11-24] MEDS ORDERED: Lidocaine 1% 20 ML MDV ONE (11:30)
== END 2021-11-24 12:00 | disposition home or self-care (01) ==
LOC: NAV ERS 10:53
DX: S61.441A Puncture wound with foreign body of right hand, initial encounter (principal); I10 Essential (primary) hypertension; I48.91 Unspecified atrial fibrillation; E78.2 Mixed hyperlipidemia; I25.10 Atherosclerotic heart disease of native coronary artery without angina pectoris; E66.9 Obesity, unspecified; F17.220 Nicotine dependence, chewing tobacco, uncomplicated; W45.8XXA Other foreign body or object entering through skin, initial encounter; Y92.69 Other specified industrial and construction area as the place of occurrence of the external cause; Z23 Encounter for immunization; Z68.45 Body mass index [BMI] 70 or greater, adult; Z79.01 Long term (current) use of anticoagulants; Z79.899 Other long term (current) drug therapy
CPT/HCPCS: 64450; 90471; 90715

== ENCOUNTER 2023-02-25 15:28 | Emergency (ER) | payer OTHER ==
[2023-02-25 16:40] LABS: Anion Gap 12 mmol/L (10-20); BUN (Urea Nitrogen) 13 mg/dL (8.4-25.7); Calc. Creatinine Clearance 0 mL/min (70-130); Carbon Dioxide 22 mmol/L (22-29); Chloride 111 mmol/L (98-107); Estimated GFR 98; Glucose 161 mg/dL (70-105); Potassium 3.7 mmol/L (3.5-5.1); Sodium 141 mmol/L (136-145)
[2023-02-25] MEDS ORDERED: Metoprolol Tartrate 5 MG/5 ML VIAL ONE (16:42)
== END 2023-02-25 18:51 | disposition home or self-care (01) ==
LOC: NAV ERS 15:28
DX: I48.20 Chronic atrial fibrillation, unspecified (principal); R05.9 Cough, unspecified; E66.9 Obesity, unspecified; E78.2 Mixed hyperlipidemia; I10 Essential (primary) hypertension; Z79.899 Other long term (current) drug therapy; Z79.82 Long term (current) use of aspirin
CPT/HCPCS: 71045; 80048; 83880; 93005; 96374

== ENCOUNTER 2023-06-22 07:43 | Emergency (ER) | payer OTHER ==
[2023-06-22] MEDS ORDERED: Mag-Al Plus 1200/1200/120 MG (30 mL) UDCUP ONE (08:27)
[2023-06-22] MEDS ORDERED: Lidocaine 2% Viscous 100 ML BOTTLE ONE (08:27)
[2023-06-22 08:46] LABS: #Eosinphils 0.1 thou/uL (0.0-0.7); #Lymphocytes 1.1 thou/uL (1.20-3.40); #Monocytes 0.6 thou/uL (0.11-0.59); #Neutrophils 4.9 thou/uL (1.40-6.50); %Basophils 0.6 % (0.0-1.0); %Eosinophils 1.3 % (0.0-10.0); %Lymphocytes 15.9 % (21.0-51.0); %Monocytes 9.3 % (0.0-10.0); %Neutrophils 72.9 % (42.0-75.0); Hematocrit 48.1 % (42.0-52.0); Hemoglobin 15.1 g/dL (14.0-18.0); Mean Corpuscular HGB CONC 31.3 g/dL (32.0-36.0); Mean Corpuscular Hemoglobin 24.9 pg (27.0-31.0); Mean Corpuscular Volume 79.5 fl (78.0-98.0); Mean Platelet Volume 9.2 fL (7.4-10.4); Platelet Count 242 10x3/uL (130-400); RBC Distribution Width 14.1 % (11.5-14.5); Red Blood Cell (RBC) Count 6.05 mill/uL (4.70-6.10); White Blood Cell (WBC) Count 6.7 10x3/uL (4.8-10.8)
[2023-06-22 08:59] LABS: ALT (SGPT) 36 U/L (8-55); AST (SGOT) 24 U/L (5-34); Albumin 4.5 g/dL (3.5-5.0); Alkaline Phosphatase 88 U/L (40-110); Anion Gap 10 mmol/L (10-20); BUN (Urea Nitrogen) 16 mg/dL (8.4-25.7); Bilirubin, Total 0.7 mg/dL (0.2-1.2); Calc. Creatinine Clearance 0 mL/min (70-130); Calcium 9.6 mg/dL (7.8-10.44); Carbon Dioxide 22 mmol/L (22-29); Chloride 109 mmol/L (98-107); Estimated GFR 82; Globulin 3.2 g/dL (2.4-3.5); Glucose 124 mg/dL (70-105); Lipase 14 U/L (8-78); Potassium 3.3 mmol/L (3.5-5.1); Protein, Total 7.7 g/dL (6.0-8.3); Sodium 138 mmol/L (136-145)
[2023-06-22] MEDS ORDERED: Potassium Chloride 20 MEQ TAB ONE (09:13)
== END 2023-06-22 09:20 | disposition home or self-care (01) ==
LOC: NAV ERS 07:43
DX: A05.9 Bacterial foodborne intoxication, unspecified (principal); I10 Essential (primary) hypertension; E87.6 Hypokalemia; E78.2 Mixed hyperlipidemia
CPT/HCPCS: 80053; 83690; 85025; 99284